=== PATIENT | female | born 1965 | race Caucasian/White ===

== ENCOUNTER 2024-05-21 16:26 | Emergency (ER) | payer OTHER, SELFPAY ==
[2024-05-21 16:42] VITALS: BP 143/100; PULSE 109; RESP 16; TEMP 36.7; O2SAT 98; BMI 36.3
[2024-05-21 16:56] LABS: UTC Strep Screen (Rapid) Positive (Negative)
--- NOTE | 2024-05-21 17:07 | ED_ITS ---
Discharge Plan Disposition Patient Disposition: Home, Self-Care Condition: Good Prescriptions Prescriptions: New penicillin V potassium 500 mg tablet 500 mg PO BID Qty: 20 0RF Referrals Follow up/Referrals: Provider,Referral, MD [Primary Care Provider] - See instructions Activity Restrictions/Add. Instructions Additional Instructions/Restrictions: *Monitor Temp, Over the counter Motrin or Tylenol as directed/as needed Tylenol every 4 hours and Motrin every 6 hours (as long as your family doctor has told you that you can take it) for fever or pain. and straight to ER if unable to lower temp less than 101.0 after medication given *Warm salt water gargles may help to soothe the throat *Throat Lozenges? *Warm fluids like tea with honey may help to soothe the throat? *Sleep elevated *Humidifier/Vaporizer *If you did not take Penicillin shot or was unable to, start taking antibiotic immediately and make sure that you take it for the FULL length of time although you should start to feel better in 24-48 hours *change toothbrush and toothpaste 24-48 hours after starting to take antibiotics so you do not reinfect yourself Monitor Temp. Tylenol and/or Ibuprofen as needed. ER if fever is no less than 101 despite alternating Tylenol and Ibuprofen * Encourage fluids, water, Gatorade, powerade, pedialyte if infant/toddler/or child *Cold fluids, popsicles and ice cream may feel good on his throat Follow up IMMEDIATELY for new or worsening symptoms or no Noticeable improvement over the next 48-72 hours. 911 for difficulty breathing or swallow ing Clinical Impressions Clinical Impression: Strep throat Instructions Patient Instructions: DI for Strep Throat, Strep Throat, Penicillin V Potassium Print Language Print Language: Sudanese Discharge ED Provider: Lelia Merritt [facility] HPI General Stated complaint: sore throat, [place] Mode of Arrival: Ambulatory Source of Information: Patient Limitations: No Limitations Time Seen by Provider: 05/21/24 17:07 Description of Symptoms (Recalled from Triage Doc. by RN): Patient reports sore throat, headache, body aches, fever and chills since yesterday. HEENT Symptoms (Recalled from RN notes): Yes Resp Symptoms (Recalled from RN notes): No Skin Symptoms (Recalled from RN notes): No MS Symptoms (Recalled from RN notes): No Functional Status (Recalled from RN notes): wnl History of Present Illness Provider Complaint: Patient states that she was around her daughter last week that had strep throat and now she started feeling bad yesterday States that she has been having sore throat, headache, body aches fever and chills so today she came in to get checked Related Data Previous Rx's ?Medication ?Instructions ?Recorded penicillin V potassium 500 mg 500 mg PO BID #20 tabs 05/21/24 tablet Allergies Allergy/AdvReac Type Severity Reaction Status Date / Time acetaminophen [From Percocet] Allergy Unknown Verified 05/21/24 16:45 allergy reaction oxycodone [From Percocet] Allergy Unknown Verified 05/21/24 16:45 allergy reaction tramadol [From Ultram] Allergy Unknown Verified 05/21/24 16:45 allergy reaction Worker's Comp Is this a Worker's Comp case?: No [facility] Disclaimer: The information contained in this section may have been updated after the patient was seen, as this information can be updated by other users. Social History Smoking Status: Unknown if ever smoked alcohol intake: never current occupational status: employed Travel in the last 8 weeks: None ROS Obtained: Yes All systems reviewed & no additional complaints except as documented and Yes Systems reviewed as appropriate & no additional complaints except as documented Constitutional Constitutional: Reports system reviewed and no additional complaints, except as documented, Reports as per HPI, Reports body ache, Reports chills, Reports fever(s) and Reports headache(s) ENT Ears, Nose, Mouth, and Throat: Reports system reviewed and no additional complaints, except as documented, Reports as per HPI, Reports headache(s) and Reports sore throat Cardiovascular Cardiovascular: Reports system reviewed and no additional complaints, except as documented and Reports as per HPI Respiratory Respiratory: Reports system reviewed and no additional complaints, except as documented and Reports as per HPI Gastrointestinal Gastrointestingal: Reports system reviewed and no additional complaints, except as documented and as per HPI Neurologic Neurologic: Reports headache(s) Physical Exam General General appearance: alert and in no apparent distress Eye Eye exam: Present normal appearance, PERRL and EOMI ENT ENT exam: Present mucous membranes moist Expanded ENT Exam Nose exam: Absent sinus tenderness Throat exam: Present tonsillar erythema and tonsillar exudate Respiratory Respiratory exam: Present normal lung sounds bilaterally; Absent respiratory distress or wheezes Cardiovascular Cardiovascular exam: Present regular rate, normal rhythm and normal heart sounds Abdominal Exam Abdominal exam: Present soft and normal bowel sounds; Absent distention or tenderness Neurological Exam Neurological exam: Present alert, oriented X3 and normal gait Medical Decision Making Medical Records Screening: Per USPSTF and CDC recommendations, given the prevalence of disease in our region, it is our hospital?s policy to screen for HIV and viral Hepatitis for all patients aged 18 and over and those with ongoing risk factors. Estiven Inquiry Pt receiving controlled substance: No Estiven was queried for this patient: No Vital Signs: 05/21/24 16:42 Temperature 98.0 F Temperature Source Oral Pulse Rate [Radial] 109 H Respiratory Rate 16 Blood Pressure [Right Arm] 143/100 H Blood Pressure Mean [Right Arm] 114 Blood Pressure Source [Right Arm] Automatic Cuff Blood Pressure Position [Right Arm] Sitting 02 Sat by Pulse Oximetry 98 Oxygen Delivery Method Room Air Lab Data Lab results reviewed: Yes I reviewed the patient's lab results. Lab Results 05/21/24 16:55: Strep Scn [facility] Positive A
[2024-05-21 17:21] VITALS: BP 143/100; PULSE 109; RESP 16; TEMP 36.7; O2SAT 98
== END 2024-05-21 17:23 | disposition home or self-care (01) ==
PROVIDERS: Emergency Provider Nurse Practitioner
DX: J02.0 Streptococcal pharyngitis (principal); R51.9 Headache, unspecified; R53.81 Other malaise
CPT/HCPCS: 87880; 99212; 99214; G0463

== ENCOUNTER 2024-07-16 11:31 | Emergency (ER) | payer OTHER, SELFPAY ==
[2024-07-16 11:50] VITALS: BP 121/83; PULSE 91; RESP 19; TEMP 36.8; O2SAT 99; BMI 35.0
--- NOTE | 2024-07-16 12:09 | EXP.UTC ---
Discharge Plan Disposition Patient Disposition: Home, Self-Care Condition: Good Prescriptions Prescriptions: New doxycycline hyclate 100 mg capsule 100 mg PO BID Qty: 20 0RF No Action cyclobenzaprine 10 mg tablet 10 mg PO DAILY Patient Comments: TAKE 1 TABLET BY MOUTH TWICE DAILY NEEDED FOR MUSCLE SPASM cetirizine [Zyrtec] 10 mg Tablet 10 mg PO DAILY omeprazole 20 mg capsule,delayed release(DR/EC) 20 mg PO BID Patient Comments: TAKE 1 CAPSULE BY MOUTH TWICE DAILY DO NOT CRUSH OR CHEW duloxetine 60 mg capsule,delayed release(DR/EC) 60 mg PO BID Patient Comments: TAKE 1 CAPSULE BY MOUTH TWICE DAILY berberine chloride 500 mg Capsule 1,500 mg PO DAILY Referrals Follow up/Referrals: Provider,Referral, MD [Primary Care Provider] - See instructions Activity Restrictions/Add. Instructions Additional Instructions/Restrictions: Watch bite area and follow up immediately if any worsening of rash Take medication as prescribed, seperate your dose of Doxycycline with your Omeprazole by at least 2 hours Over the counter Motrin and/or Tyelnol for fever or pain Follow up with your Family Doctor if no improvement Clinical Impressions Clinical Impression: Tick bite Instructions Patient Instructions: How to Remove a Tick, Protect Yourself from Tickborne Illnesses, Doxycycline Print Language Print Language: Mongolian Discharge ED Provider: Lelia Merritt [facility] General Stated complaint: tick bite on stomach Mode of Arrival: Ambulatory Source of Information: Patient Limitations: No Limitations Time Seen by Provider: 07/16/24 12:09 Description of Symptoms (Recalled from Triage Doc. by RN): PATIENT C/O TICK BITE TO RIGHT SIDE OF ABDOMEN THAT SHE NOTICED THIS MORNING HEENT Symptoms (Recalled from RN notes): No Resp Symptoms (Recalled from RN notes): No Skin Symptoms (Recalled from RN notes): Yes MS Symptoms (Recalled from RN notes): No Functional Status (Recalled from RN notes): WNL History of Present Illness Provider Complaint: Patient states that she has a tick bite on the right side of her abdomen that she noticed this morning and she removed the tick and noticed the area was red and seemed to be starting to have a rash around it Unsure how long it may have been there Related Data Home Medications ?Medication ?Instructions ?Recorded ?Confirmed berberine chloride 500 mg capsule 1,500 mg PO DAILY 07/16/24 07/16/24 cetirizine 10 mg tablet (Zyrtec) 10 mg PO DAILY 07/16/24 07/16/24 cyclobenzaprine 10 mg tablet 10 mg PO DAILY 07/16/24 07/16/24 duloxetine 60 mg capsule,delayed 60 mg PO BID 07/16/24 07/16/24 release omeprazole 20 mg capsule,delayed 20 mg PO BID 07/16/24 07/16/24 release Previous Rx's ?Medication ?Instructions ?Recorded doxycycline hyclate 100 mg capsule 100 mg PO BID #20 caps 07/16/24 Allergies Allergy/AdvReac Type Severity Reaction Status Date / Time acetaminophen (From Percocet) Allergy Unknown Verified 05/21/24 16:45 allergy reaction gabapentin Allergy Unknown Verified 07/16/24 12:05 allergy reaction oxycodone (From Percocet) Allergy Unknown Verified 05/21/24 16:45 allergy reaction tramadol (From Ultram) Allergy Unknown Verified 05/21/24 16:45 allergy reaction Worker's Comp Is this a Worker's Comp case?: No [facility] Disclaimer: The information contained in this section may have been updated after the patient was seen, as this information can be updated by other users. Medical History (Updated 07/16/24 @ 12:20 by Lelia Merritt APRN) Migraines GERD (gastroesophageal reflux disease) Depression Anxiety Surgical History (Updated 07/16/24 @ 12:06 by Lexy Fofana RN) History of cholecystectomy History of tubal ligation History of hysterectomy Social History (Updated 05/21/24 @ 17:11 by Lelia Merritt APRN) Smoking Status: Unknown if ever smoked alcohol intake: never current occupational status: employed Travel in the last 8 weeks: None ROS Obtained: Yes All systems reviewed & no additional complaints except as documented and Yes Systems reviewed as appropriate & no additional complaints except as documented Constitutional Constitutional: Reports system reviewed and no additional complaints, except as documented and Reports as per HPI ENT Ears, Nose, Mouth, and Throat: Reports system reviewed and no additional complaints, except as documented and Reports as per HPI Cardiovascular Cardiovascular: Reports system reviewed and no additional complaints, except as documented and Reports as per HPI Respiratory Respiratory: Reports system reviewed and no additional complaints, except as documented and Reports as per HPI Gastrointestinal Gastrointestingal: Reports system reviewed and no additional complaints, except as documented and as per HPI Integumentary/Breasts Skin/Breast: Reports system reviewed and no additional complaints, except as documented, Reports as per HPI and Reports rash (tick bite with rash ) Physical Exam General General appearance: alert and in no apparent distress ENT ENT exam: Present mucous membranes moist Chest Chest inspection: Present normal inspection and symmetric chest wall rise Respiratory Respiratory exam: Present normal lung sounds bilaterally; Absent respiratory distress or wheezes Cardiovascular Cardiovascular exam: Present regular rate, normal rhythm and normal heart sounds Neurological Exam Neurological exam: Present alert, oriented X3 and normal gait Skin Skin exam: Present rash Expanded Skin Exam Body image: 1. tick bite with red rash noted around bite area, appears like tick was removed completely Medical Decision Making Medical Records Screening: Per USPSTF and CDC recommendations, given the prevalence of disease in our region, it is our hospital?s policy to screen for HIV and viral Hepatitis for all patients aged 18 and over and those with ongoing risk factors. Estiven Inquiry Pt receiving controlled substance: No Estiven was queried for this patient: No Vital Signs: 07/16/24 11:50 Temperature 98.3 F Temperature Source Oral Pulse Rate [Left Brachial] 91 H Respiratory Rate 19 Blood Pressure [Left Arm] 121/83 Blood Pressure Mean [Left Arm] 95 Blood Pressure Source [Left Arm] Automatic Cuff Blood Pressure Position [Left Arm] Supine 02 Sat by Pulse Oximetry 99 Oxygen Delivery Method Room Air
[2024-07-16 12:21] VITALS: BP 121/83; PULSE 91; RESP 19; TEMP 36.8; O2SAT 99
== END 2024-07-16 12:23 | disposition home or self-care (01) ==
PROVIDERS: Emergency Provider Nurse Practitioner
DX: S30.861A Insect bite (nonvenomous) of abdominal wall, initial encounter (principal); R21 Rash and other nonspecific skin eruption
CPT/HCPCS: 99212; G0381

== ENCOUNTER 2025-05-15 15:13 | Outpatient (CLI) | payer OTHER, SELFPAY ==
--- OUTSIDE RECORDS SUMMARY | 2025-05-02 12:40 | XMS_ITS | Encounter Summary ---
Author Organization [facility] Address [address] [place] [address] Care Team Providers Care Pole Truck Driver Name Role Phone Yeni Mustafa HARDWOOD FINISHER Primary Care Provider [phone] Reason for Visit * Reason Comments Labs Hair/Scalp Problem Encounter Details Date Type Department Care Team (Late st Contact Info) Description 05/02/2025 12:40 PM EDT Office Visit [facility] [address] [place] [address] Yeni Mustafa APRN [address] [place] [address] Hair thinning (Primary Dx); Chronic fatigue syndrome with fibromyalgia; Encounter for screening mammogram for malignant neoplasm of breast Social History Tobacco Use Types Packs/Day Years Used Date Smoking Tobacco: Never Passive Smoke Exposure: Never Smokeless Tobacco: Never Alcohol Use Standard Drinks/Week Comments Not Currently 0 (1 standard drink = 0.6 oz pur e alcohol) Maybe 1 a year PHQ-2 Answer Date Recorded Patient Health Questionnaire-2 Score 2 05/02/2025 PHQ-9 Answer Date Recorded Patient Health Questionnaire-9 Score 2 05/02/2025 Humiliation, Afraid, Rape, and Kick questionnair e Answer Date Recorded Within the last year, have y ou been afraid of your partner or ex-partner? No 05/02/2025 Within the last year, have y ou been humiliated or emotionally abused in other ways by your partner or ex-partner? No Within the last year, have y ou been kicked, hit, slapped, or otherwise physically hurt by your partner or ex-partner? No 05/02/2025 Within the last year, have y ou been raped or forced to have any kind of sexual activity by your partner or ex-partner? No 05/02/2025 Hunger Vital Sign Answer Date Recorded Within the past 12 months, y ou worried that your food would run out before you got the money to buy more. Never true 05/02/20 25 Within the past 12 months, t he food you bought just didn't last and you didn't have money to get more. Never true 05/02/2025 PRAPARE - Transportation Answer Date Re corded In the past 12 months, has l ack of transportation kept you from medical appointments or from getting medications? No 12/2024 In the past 12 months, has l ack of transportation kept you from meetings, work, or from getting things needed for daily living? No 05/02/2025 Housing Stability Vital Sign Answer Quinn e Recorded In the last 12 months, was t here a time when you were not able to pay the mortgage or rent on time? No 05/02/2025 In the past 12 months, how m any times have you moved where you were living? 0 05/02/2025 At any time in the past 12 m [facility], were you homeless or living in a half-way (including now)? No 05/02/2025 [facility] Utilities Answer Date Recorded In the past 12 months has th e electric, gas, oil, or water company threatened to shut off services in your home? No 05/02/2025 Comments Unknown Sex and Gender Information Value Date Recorded Sex Assigned at Not on file Legal Sex Female 11:41 AM EDT Gender Identity Not on file Sexual Orientation Not on file documented as of this encounter Last Filed Vital Signs Vital Sign Reading Time Taken Comments Blood Pressure 120/82 05/02/2025 12:33 PM EDT Pulse 94 05/02/2025 12:33 PM EDT Temperature 37 C (98.6 F) 05/02/2025 12:33 PM EDT Respiratory Rate 14 05/02/2025 12:3 3 PM EDT Oxygen Saturation 99% 05/02/2025 12: 33 PM EDT Inhaled Oxygen Concentration - - Weight 95.7 kg (210 lb 15.7 oz) 025 12:33 PM EDT Height 167.6 cm (5' 6 ) 05/02/2025 12:3 3 PM EDT Body Mass Index 34.05 05/02/2025 12:33 PM EDT documented in this encounter Functional Status * Over the past 2 weeks, how often have you been bothered by any of the following problems? Question Answer Date of Assessment Author Little interest or pleasure in doing things Several days 05/02/2025 12:36 PM EDT Caity Mustafa Feeling down, depressed, or hopeless Several days 05/02/2025 12:36 PM EDT Caity Mustafa Patient Health Questionnaire -2 Score 2 05/02/2025 12:36 PM EDT Caity Mustafa * Question Answer Date of Assessment Author Trouble falling or staying a sleep, or sleeping too much Not at all 05/02/2025 12:36 PM EDT Caity Mustafa Feeling tired or having mckinley le energy Not at all 05/02/2025 12:36 PM EDT Caity Mustafa Poor appetite or overeating Not at all 05/02/2025 12 :36 PM EDT Caity Mustafa Feeling bad about yourself - or that you are a failure or have let yourself or your family down Not at all 05/02/2025 12:36 PM EDT Janet Mustafa Trouble concentrating on thi ngs, such as reading the newspaper or watching television Not at all 05/02/2025 12:36 PM EDCaity Crockett Moving or speaking so slowly that other people could have noticed? Or the opposite - being so fidgety or restless that you have been moving around a lot more than usual. Not at all 05/02/2025 12:36 PM EDT Caity Mustafa Thoughts that you would be b mary off or hurting yourself in some way Not at all 05/02/2025 12:36 PM EDT Caity Mustafa Patient Health Questionnaire-9 Score 2 12/2024 12:36 PM EDT Caity Mustafa * Calculated C-SSRS Risk Score (Lifetime/Recent) Answer Date of Assessment Author No Risk Indicated 05/02/2025 12:35 PM EDT Caity Mustafa * How difficult have these problems made it for you to do your work, take care of things at home, or get along with other people? Answer Date of Assessment Author Not difficult at all 05/02/2025 12:36 PM EDT Caity Iglesias * How difficult have these problems made it for you to do your work, take care of things at home, or get along with other people? Answer Date of Assessment Author Not difficult at all 05/02/2025 12:36 PM EDT Caity Iglesias * Question Answer Date of Assessment Author 1. Wish to be (Past 1 Month) No 025 12:35 PM EDT Caity Mustafa 2. Non-Specific Active Suici siobhan Thoughts (Past 1 Month) No 05/02/2025 12:35 PM EDT Caity Mustafa 6. Suicidal Behavior (Lifetime) No 12:35 PM EDT Caity Mustafa documented as of this encounter Miscellaneous Notes * Progress Notes - Yeni Mustafa, HARDWOOD FINISHER - 05/02/2025 12:40 PM EDT Subjective Patient ID: Carolann Mcintyre is a 59 y.o. female. Chief Complaint Patient presents with Labs Hair/Scalp Problem Here with report of recent divorce but feeling better now. Enjoying life now and looking to enjoy another grandkid. Still taking sertraline. Was shocked at first but doing well now. Has noticed some hair thinning and worried about labs. Feels it is all over and not in patches. Sees more hair in the drain at home than usual. Was on semaglutide but was very sick for 5 days and stopped it. The following portions of the chart were reviewed this encounter and updated as appropriate: Tobacco Allergies Meds Problems Med Hx Surg Hx Fam Hx Current Medications[1] Objective Blood pressure 120/82, pulse 94, temperature 37 ??C (98.6 ??F), resp. rate 14, height 1.676 m (5' 6 ), weight 95.7 kg (210 lb 15.7 oz), SpO2 99%. Body mass index is 34.05 kg/m??. Physical Exam Vitals reviewed. Constitutional: Appearance: Normal appearance. Cardiovascular: Rate and Rhythm: Normal rate and regular rhythm. Pulmonary: Effort: Pulmonary effort is normal. Breath sounds: Normal breath sounds. Skin: General: Skin is warm and dry. Comments: No patches of alopecia . No scalp redness Neurological: Mental Status: She is alert and oriented to person, place, and time. Psychiatric: Mood and Affect: Mood normal. Behavior: Behavior normal. Thought Content: Thought content normal. Judgment: Judgment normal. Assessment/Plan Diagnoses and all orders for this visit: Hair thinning - Comprehensive Metabolic Panel, Plasma - CBC and Differential - Hemoglobin A1c - Vitamin D 25 Hydroxy - Vitamin B12, Serum - Thyroid Stimulating Hormone, Plasma Chronic fatigue syndrome with fibromyalgia - Comprehensive Metabolic Panel, Plasma - CBC and Differential - Hemoglobin A1c - Vitamin D 25 Hydroxy - Vitamin B12, Serum - Thyroid Stimulating Hormone, Plasma Encounter for screening mammogram for malignant neoplasm of breast - Mammography Breast Screening Tomosynthesis Bilateral; Future Discussed poss causes of hair thinning Will get labs for evaluation Note to patient: The Century Cures Act makes medical notes like these available to patients inthe interest of transparency. However, be advised this is a medical document. It is intended as peer to peer communication. It is written in medical language and may contain abbreviations or verbiagethat are unfamiliar. It may appear blunt or direct. Medical documents are intended to carry relevant information, facts as evident, and the clinical opinion of the practitioner. [1] Current Outpatient Medications: cholecalciferol (Vitamin D-3) 50 MCG (2000 UT) capsule, Take 1 capsule (2,000 Units) by mouth daily., Disp: , Rfl: cyclobenzaprine (Flexeril) 10 MG tablet, Take 1 tablet by mouth 2 (two) times a day as needed for muscle spasms., Disp: 60 tablet, Rfl: 11 omeprazole (PriLOSEC) [address] capsule, Take 1 capsule by mouth in the morning and 1 capsule beforebedtime. Do not crush or chew., Disp: 180 capsule, Rfl: 3 sertraline (Zoloft) 25 MG tablet, Take 1 tablet by mouth daily., Disp: 90 tablet, Rfl: 3 documented in this encounter Plan of Treatment Scheduled Orders Name Type Priority Associated Diagnoses Orde r Schedule Mammography Breast Screening Tomosynthesis Bilateral Imaging Routine Encounter for screening mammogram for malignant neoplasm of breast Expected: 05/02/2025 (Approximate), Expires: 11/03/2026 documented as of this encounter Procedures Procedure Name Priority Date/Time Associated Diagnosis Comments VITAMIN D 25 HYDROXY Routine 05/02/2025 1:13 PM EDT Hair thinning Chronic fatigue syndrome with fibromyalgia CBC WITH AUTO DIFFERENTIAL Routine 05/02/2025 1:13 PM EDT Hair thinning Chronic fatigue syndrome with fibromyalgia TSH Routine 05/02/2025 1:13 PM EDT Hair thinning Chronic fatigue syndrome with fibromyalgia HEMOGLOBIN A1C Routine 05/02/2025 1:13 PM EDT Hair thinning Chronic fatigue syndrome with fibromyalgia VITAMIN B12, SERUM Routine 05/02/2025 1: 13 PM EDT Hair thinning Chronic fatigue syndrome with fibromyalgia COMPREHENSIVE METABOLIC PANEL, PLASMA Routine 05/02/2025 1:13 PM EDT Hair thinning Chronic fatigue syndrome with fibromyalgia documented in this encounter Results * Thyroid Stimulating Hormone, Plasma (05/02/2025 1:13 PM EDT) Thyroid Stimulating Hormone, Plasma 2.31 0.40 - 4.20 uIU/mL 05/02/2025 7:28 PM EDT [facility] Blood Venous blood specimen / Unknown Venipuncture / Unknown 05/02/2025 1:13 PM EDT 05/02/2025 1:13 PM EDT us Yeni Mustafa HARDWOOD FINISHER LAB BLOOD ORDERABLES Final Re sult [facility] [address] [place] [address] * Vitamin B12, Serum (05/02/2025 1:13 PM EDT) Vitamin B12, Serum 486 210 - 1,033 pg/mL 05/02/2025 7:54 PM EDT [facility] Blood Venous blood specimen / Unknown Venipuncture / Unknown 05/02/2025 1:13 PM EDT 05/02/2025 1:13 PM EDT us Yeni Eatonum HARDWOOD FINISHER LAB BLOOD ORDERABLES Final Re sult Performing Organization Address [facility] Co de Phone Number [facility] [address] [place] [address] * (ABNORMAL) Vitamin D 25 Hydroxy (05/02/2025 1:13 PM EDT) Vitamin D 25 Hydroxy 126.4(H) 20.0 - 80.0 ng/mL 05/02/2025 9:45 PM EDT [facility] Blood Venous blood specimen / Unknown Venipuncture / Unknown 05/02/2025 1:13 PM EDT 05/02/2025 1:13 PM EDT Narrative [facility] - 05/02/2025 9:45 PM EDT Testing performed on [employer], standardized against NIST SRM 2972. When testing samples from patients whose predominant form of vitamin D is vitamin D2, such as patients receiving vitamin D2 supplementation, results that are subtherapeutic should be confirmed with another method, such as LC-MS/MS, before being used for patient management. Vitamin D, 25-Hydroxy reference range, age 18 years and up: Deficiency: <12 ng/mL Insufficiency: 12 to 19 ng/mL Sufficiency: 20 to 80 ng/mL Possible toxicity: >100 ng/mL us Pradhane Stefanie [place] HARDWOOD FINISHER LAB BLOOD ORDERABLES Final Re sult Performing Organization Address [facility]/ZIP Co de Phone Number [facility] [address] [place] [address] * Hemoglobin A1c (05/02/2025 1:13 PM EDT) Hemoglobin A1c 5.5 <5.7 % 05/05/2025 10:33 AM EDT [facility] Comment:A hemoglobin variant was detected in the HbA1c capillary electrophoresis testing. If clinically indicated, hemoglobin electrophoresis should be ordered to further evaluate this finding. This variant may impact the red blood cell turnover rate. The clinical utility of HbA1c measurement for monitoring long-term glucose control in the setting of hemoglobin variants has not been well characterized. Blood Venous blood specimen / Unknown Venipuncture / Unknown 05/02/2025 1:13 PM EDT 05/02/2025 1:13 PM EDT Narrative [facility] - 05/05/2025 10:33 AM EDT HA1C Interpretive Data: Diagnosis of Diabetes: Diabetic > or = 6.5% Pre-diabetic 5.7 to 6.4% Non-diabetic < or = 5.6% Glycemic Targets for Type I and Type II Diabetics: Non- Adults <7.0% Adults <6.0% Children and Adolescents <7.5% Source: [place] [employer]. Standards of medical care in diabetes,2017. Diabetes Care.2017:40 (suppl 1):S1-S135. us Yeni Mustafa APRN LAB BLOOD ORDERABLES Final Re sult [facility] [address] [place] [address] * CBC and Differential (05/02/2025 1:13 PM EDT) WBC Count 7.56 3.70 - 10.30 10*3/uL LAB HEMATOLOGY METHOD 05/02/2025 7:12 PM EDT [facility] RBC Count 4.33 3.90 - 5.20 10*6/uL LAB HEMATOLOGY METHOD 05/02/2025 7:12 PM EDT [facility] HGB 11.5 11.2 - 15.7 g/dL LAB HEMATOLOGY METHOD 05/02/2025 7:12 PM EDT [facility] HCT 35.8 34.0 - 45.0 % LAB HEMATOLOGY METHOD 05/02/2025 7:12 PM EDT [facility] Platelet Count 346 155 - 369 10*3/uL LAB HEMATOLOGY METHOD 05/02/2025 7:12 PM EDT [facility] MCV 83 79 - 98 fL LAB HEMATOLOGY METHOD 05/02/2025 7:12 PM EDT [facility] MCH 26.6 26.0 - 32.0 pg LAB HEMATOLOGY METHOD 05/02/2025 7:12 PM EDT [facility] MCHC 32.1 30.7 - 35.5 g/dL LAB HEMATOLOGY METHOD 05/02/2025 7:12 PM EDT [facility] RDW 14.5 11.5 - 14.5 % LAB HEMATOLOGY METHOD 05/02/2025 7:12 PM EDT [facility] MPV 10.3 8.8 - 12.5 fL LAB HEMATOLOGY METHOD 05/02/2025 7:12 PM EDT [facility] nRBC 0.0 <=0.0 per 100 WBCs LAB HEMATOLOGY METHOD 05/02/2025 7:12 PM EDT [facility] Differential Type Automated LAB HEMATOLOGY METHOD 05/02/2025 7:12 PM EDT [facility] Neutrophils % 48 % LAB HEMATOLOGY METHOD 05/02/2025 7:12 PM EDT [facility] Lymphocytes % 41 % LAB HEMATOLOGY METHOD 05/02/2025 7:12 PM EDT [facility] Monocytes % 8 % LAB HEMATOLOGY METHOD 05/02/2025 7:12 PM EDT [facility] Eosinophils % 2 % LAB HEMATOLOGY METHOD 05/02/2025 7:12 PM EDT [facility] Basophils % 1 % LAB HEMATOLOGY METHOD 05/02/2025 7:12 PM EDT [facility] Immature Granulocytes % 0 % LAB HEMATOLOGY METHOD 05/02/2025 7:12 PM EDT [facility] Neutrophils Absolute 3.70 1.60 - 6.10 10*3/uL LAB HEMATOLOGY METHOD 05/02/2025 7:12 PM EDT [facility] Lymphocytes Absolute 3.07 1.20 - 3.90 10*3/uL LAB HEMATOLOGY METHOD 05/02/2025 7:12 PM EDT [facility] Monocytes Absolute 0.58 0.30 - 0.90 10*3/uL LAB HEMATOLOGY METHOD 05/02/2025 7:12 PM EDT [facility] Eosinophils Absolute 0.12 0.00 - 0.50 10*3/uL LAB HEMATOLOGY METHOD 05/02/2025 7:12 PM EDT [facility] Basophils Absolute 0.06 0.00 - 0.10 10*3/uL LAB HEMATOLOGY METHOD 05/02/2025 7:12 PM EDT [facility] Immature Granulocytes Absolute 0.03 0.00 - 0.06 10*3/uL LAB HEMATOLOGY METHOD 05/02/2025 7:12 PM EDT [facility] Blood Venous blood specimen / Unknown Venipuncture / Unknown 05/02/2025 1:13 PM EDT 05/02/2025 1:13 PM EDT Narrative [facility] - 05/02/2025 7:12 PM EDT Therapeutic decision making should be based on absolute values, rather than percentages. us Yeni M Moon HARDWOOD FINISHER LAB BLOOD ORDERABLES Final Re sult [facility] [address] [place] [address] * Comprehensive Metabolic Panel, Plasma (05/02/2025 1:13 PM EDT) Glucose, Plasma 89 74 - 99 mg/dL 05/02/2025 7:28 PM EDT [facility] BUN, Plasma 17 7 - 21 mg/dL 05/02/2025 7:28 PM EDT [facility] Creatinine, Plasma 0.66 0.60 - 1.10 mg/dL 05/02/2025 7:28 PM EDT [facility] BUN/Creatinine Ratio 26 05/02/2025 7:28 PM EDT [facility] Sodium, Plasma 141 136 - 145 mmol/L 05/02/2025 7:28 PM EDT [facility] Potassium, Plasma 4.1 3.6 - 4.9 mmol/L 05/02/2025 7:28 PM EDT [facility] Chloride, Plasma 104 97 - 107 mmol/L 05/02/2025 7:28 PM EDT [facility] CO2, Plasma 24 22 - 29 mmol/L 05/02/2025 7:28 PM EDT [facility] Anion Gap 13 6 - 16 mmol/L 05/02/2025 7:28 PM EDT [facility] Total Calcium, Plasma 9.8 8.9 - 10.2 mg/dL 05/02/2025 7:28 PM EDT [facility] Total Protein 7.2 6.3 - 7.9 g/dL 05/02/2025 7:28 PM EDT [facility] Albumin, Plasma 4.4 3.5 - 5.2 g/dL 05/02/2025 7:28 PM EDT [facility] AST, Plasma 19 10 - 35 U/L 05/02/2025 7:28 PM EDT [facility] ALT, Plasma 21 10 - 35 U/L 05/02/2025 7:28 PM EDT [facility] Alkaline Phosphatase, Plasma 74 46 - 142 U/L 05/02/2025 7:28 PM EDT [facility] Total Bilirubin, Plasma 0.3 0.2 - 1.1 mg/dL 05/02/2025 7:28 PM EDT [facility] eGFRcr 101.8 mL/min/1.7 3m*2 05/02/2025 7:28 PM EDT [facility] Comment:Reported eGFRcr in m L/min/1.73m2 is based the CKD-EPI 2020 equation that does not use a race coefficient. Blood Venous blood specimen / Unknown Venipuncture / Unknown 05/02/2025 1:13 PM EDT 05/02/2025 1:13 PM EDT us Yein Mustafa APRN LAB BLOOD ORDERABLES Final Re sult Performing Organization Address City/State/[facility] Co de Phone Number [facility] [address] [place] [address] documented in this encounter Visit Diagnoses Diagnosis Hair thinning- Primary Unspecified alopecia Chronic fatigue syndrome with fibromyalgia Encounter for screening mammogram for malignant neoplasm of breast documented in this encounter Additional Health Concerns Assessment Noted Time PHQ-9 Depression Total Score: 2 05/02/20 25 12:36 PM EDT A Body Mass Index follow-up plan has been documented for the patient 05/02/2025 2:04 PM EDT documented as of this encounter Care Teams Pole Truck Driver Relationship Specialty Start Date End Date Yeni Mustafa APRN [address] [place] [address] PCP - General Family Medicine 03/12/24 documented as of this encounter
--- OUTSIDE RECORDS SUMMARY | 2025-05-15 15:16 | XMS_ITS | Clinical Summary ---
[facility] Organization [facility] Address [address] [place] [id number] Care Team Providers Care Detention Sergeant Name Role Phone Yeni Mustafa HOOP MAKER MACHINE Primary Care Provider [phone] Social History Tobacco Use Types Packs/Day Years Used Date Smoking Tobacco: Never Assessed Comments Unknown Sex and Gender Information Value Date Recorded Sex Assigned at Not on file Legal Sex Female 3:59 PM EST Gender Identity Not on file Sexual Orientation Not on file Plan of Treatment Health Maintenance Due Date Last Done Comments ANNUAL PHYSICAL 1966 Annual Gynecologic Pelvic and Breast Exam 1966 HEPATITIS C SCREENING 1966 MAMMOGRAM 2006 COLOGUARD 2011 COLON CANCER SCREENING 5 YEAR SIGMOIDOSCOPY 2011 COLONOSCOPY 2011 12/26/[address] CANCER SCREENING 2011 CT COLONOGRAPHY 2011 FECAL OCCULT BLOOD TEST 2011 FIT Testing (1 year) 2011 Pneumococcal Vaccine 50+ (1 of 1 - PCV) 2016 ZOSTER VACCINE (1 of 2) 2016 COVID-19 Vaccine (2 - season) 04/28/202504/2021 INFLUENZA VACCINE 05/28/2025 TDAP/TD VACCINES (2 - Td or Tdap) 10/15/2034 025 Insurance [facility] P[facility] Care Teams Detention Sergeant Relationship Specialty Start Date End Date Yeni Mustafa [place] [address] PCP - General Family Medicine 10/15/24
--- OUTSIDE RECORDS SUMMARY | 2025-05-15 15:16 | XMS_ITS | Encounter Summary ---
Author Organization [facility] Address [address] [place] [address] Care Team Providers Care Director Of Dietary Name Role Phone Yeni Mustafa APRN Primary Care Provider Encounter Details Date Type Department Care Team (Latest Contact Info) Description 04/30/2025 Travel Social History Tobacco Use Types Packs/Day Years Used Date Smoking Tobacco: Never Smokeless Tobacco: Never Alcohol Use Standard Drinks/Week Comments Not Currently 0 (1 standard drink = 0.6 oz pur e alcohol) Maybe 1 a year Humiliation, Afraid, Rape, and Kick questionnair e Answer Date Recorded Within the last year, have y ou been afraid of your partner or ex-partner? No 11/19/2024 Within the last year, have y ou been humiliated or emotionally abused in other ways by your partner or ex-partner? No Within the last year, have y ou been kicked, hit, slapped, or otherwise physically hurt by your partner or ex-partner? No 11/19/2024 Within the last year, have y ou been raped or forced to have any kind of sexual activity by your partner or ex-partner? No 11/19/2024 PHQ-2 Answer Date Recorded Patient Health Questionnaire-2 Score 6 10/15/2024 Hunger Vital Sign Answer Date Recorded Within the past 12 months, y ou worried that your food would run out before you got the money to buy more. Never true 11/20/19 Within the past 12 months, t he food you bought just didn't last and you didn't have money to get more. Never true 11/19/2024 PRAPARE - Transportation Answer Date Re corded In the past 12 months, has l ack of transportation kept you from medical appointments or from getting medications? No 10/27 In the past 12 months, has l ack of transportation kept you from meetings, work, or from getting things needed for daily living? No 11/19/2024 Housing Stability Vital Sign Answer Quinn e Recorded In the last 12 months, was t here a time when you were not able to pay the mortgage or rent on time? No 03/08/2024 In the last 12 months, how many places have you lived? 1 03/08/2024 In the last 12 months, was t here a time when you did not have a steady place to sleep or slept in a senior care (including now)? No 03/08/2024 PHQ-9 Answer Date Recorded Patient Health Questionnaire-9 Score 14 10/15/2024 Housing Stability Vital Sign Answer Quinn e Recorded In the last 12 months, was t here a time when you were not able to pay the mortgage or rent on time? No 11/19/2024 In the past 12 months, how m any times have you moved where you were living? 0 11/19/2024 At any time in the past 12 m [facility], were you homeless or living in a senior care (including now)? No 11/19/2024 Utilities Answer Date Recorded In the past 12 months has th e electric, gas, oil, or water company threatened to shut off services in your home? No 11/19/2024 Comments Unknown Sex and Gender Information Value Date Recorded Sex Assigned at Not on file Legal Sex Female 11:41 AM EDT Gender Identity Not on file Sexual Orientation Not on file documented as of this encounter Plan of Treatment Not on file documented as of this encounter Visit Diagnoses Not on filedocumented in this encounter Additional Health Concerns Assessment Noted Time PHQ-9 Depression Total Score: 14 025 9:24 AM EST A Body Mass Index follow-up plan has been documented for the patient 11/19/2024 1:56 PM EDT documented as of this encounter Care Teams Director Of Dietary Relationship Specialty Start Date End Date Yeni Mustafa APRN [facility] [place] [phone] PCP - General Family Medicine 03/12/24 documented as of this encounter
--- OUTSIDE RECORDS SUMMARY | 2025-05-15 15:16 | XMS_ITS | Encounter Summary ---
Author Organization [facility] Address [address] [place] [address] Care Team Providers Care Bee Raiser Name Role Phone Yeni Mustafa APRN Primary Care Provider [phone] Reason for Visit * Reason Onset Date Comments Med Refill 10/15/2024 Encounter Details Date Type Department Care Team (Late st Contact Info) Description 10/15/2024 Refill [facility] [address] [place] [address] Yeni Mustafa APRN [address] [place] [address] Restless leg; Gastroesophageal reflux disease with esophagitis without hemorrhage Social History Tobacco Use Types Packs/Day Years Used Date Smoking Tobacco: Never Smokeless Tobacco: Never Alcohol Use Standard Drinks/Week Comments Not Currently 0 (1 standard drink = 0.6 oz pur e alcohol) Maybe 1 a year Humiliation, Afraid, Rape, and Kick questionnair e Answer Date Recorded Within the last year, have y ou been afraid of your partner or ex-partner? No 03/08/2024 Within the last year, have y ou been humiliated or emotionally abused in other ways by your partner or ex-partner? No Within the last year, have y ou been kicked, hit, slapped, or otherwise physically hurt by your partner or ex-partner? No 03/08/2024 Within the last year, have y ou been raped or forced to have any kind of sexual activity by your partner or ex-partner? No 03/08/2024 PHQ-2 Answer Date Recorded Patient Health Questionnaire-2 Score 6 10/15/2024 Hunger Vital Sign Answer Date Recorded Within the past 12 months, y ou worried that your food would run out before you got the money to buy more. Never true 03/08/20 24 Within the past 12 months, t he food you bought just didn't last and you didn't have money to get more. Never true 03/08/2024 PRAPARE - Transportation Answer Date Re corded In the past 12 months, has l ack of transportation kept you from medical appointments or from getting medications? No 02/25 In the past 12 months, has l ack of transportation kept you from meetings, work, or from getting things needed for daily living? No 03/08/2024 Housing Stability Vital Sign Answer Quinn e [...] to sleep or slept in a senior living (including now)? No 03/08/2024 PHQ-9 Answer Date Recorded Patient Health Questionnaire-9 Score 14 10/15/2024 Utilities Answer Date Recorded In the past 12 months has th e electric, gas, oil, or water company threatened to shut off services in your home? No 03/08/2024 Comments Unknown Sex and Gender Information Value Date Recorded Sex Assigned at Not on file Legal Sex Female 11:41 AM EDT Gender Identity Not on file Sexual Orientation Not on file documented as of this encounter Functional Status * Over the past 2 weeks, how often have you been bothered by any of the following problems? Question Answer Date of Assessment Author Little interest or pleasure in doing things Nearly every day 10/15/2024 9:24 AM Jane Murphy Feeling down, depressed, or hopeless Nearly every day 10/15/2024 9:24 AM Jane Murphy Patient Health Questionnaire-2 Score 6 10/15/2024 9:24 AM Jane Murphy * Question Answer Date of Assessment Author Trouble falling or staying asleep, or sleeping too much Several days 10/15/2024 9:24 AM Aric Murphy Feeling tired or having little energy Nearly every day 10/15/2024 9:24 AM Jane Murphy Poor appetite or overeating Not at all 10/15/2024 9: 24 AM Jane Murphy Feeling bad about yourself - or that you are a failure or have let yourself or your family down Not at all 10/15/2024 9:24 AM Jane Murphy Trouble concentrating on things, such as reading the newspaper or watching television Nearly every day 10/15/2024 9:24 AM Jane Murphy Moving or speaking so slowly that other people could have noticed? Or the opposite - being so fidgety or restless that you have been moving around a lot more than usual. Several days 10/15/2024 9:24 AM Jane Murphy Thoughts that you would be better off or hurting yourself in some way Not at all 10/15/2024 9:24 AM Jane Murphy Patient Health Questionnaire-9 Score 14 10/15/2024 9:24 AM Jane Murphy * How difficult have these problems made it for you to do your work, take care of things at home, or get along with other people? Answer Date of Assessment Author Somewhat difficult 10/15/2024 9:24 AM Jane Murphy documented as of this encounter Miscellaneous Notes * Telephone Encounter - Rhea Ruiz RN - 10/18/2024 9:49 AM EST Called and phone was answered then hung up * Telephone Encounter - Joselyn Mcwilliams, PharmD - 10/18/2024 9:18 AM EST 2 medication(s) has been approved per protocol. Please keep upcoming appointment for additional refills. Medications have been pended for refill atupcoming appointment. documented in this encounter Plan of Treatment Not on file documented as of this encounter Visit Diagnoses Diagnosis Restless leg Restless legs syndrome (RLS) Gastroesophageal reflux disease with esophagitis without hemorrhage documented in this encounter Additional Health Concerns Assessment Noted Time PHQ-9 Depression Total Score: 14 025 9:24 AM EST A Body Mass Index follow-up plan has been documented for the patient 10/15/2024 10:18 AM EST documented as of this encounter Care Teams Bee Raiser Relationship Specialty Start Date End Date Yeni Mustafa, CUSTOMER ENERGY SPECIALIST [address] [place] [address] PCP - General Family Medicine 03/12/24 documented as of this encounter
--- OUTSIDE RECORDS SUMMARY | 2025-05-15 15:16 | XMS_ITS | Encounter Summary ---
Author Organization [facility] Address [address] [place] [address] Care Team Providers Care Quantitative Associate Name Role Phone Yeni Mustafa APRN Primary Care Provider [phone] Encounter Details Date Type Department Care Team (Latest Contact Info) Description 05/02/2025 Travel Social History Tobacco Use Types Packs/Day [...] any time in the past 12 m [facility], were you homeless or living in a longterm (including now)? No 05/02/2025 [facility] Utilities Answer Date Recorded In the past [...] doing things Several days 05/02/2025 12:36 PM EDCaity Crockett Feeling down, depressed, or hopeless Several days 05/02/2025 12:36 PM EDT Caity Mustafa Patient Health Questionnaire -2 Score 2 05/02/2025 12:36 PM EDT Caity Mustafa * Question Answer Date of Assessment Author Trouble falling or staying a sleep, or sleeping too much Not at all 05/02/2025 12:36 PM Caity Sexton Feeling tired or having mckinley le energy Not at all 05/02/2025 12:36 PM EDT Caity Mustafa Poor appetite or overeating Not at all 05/02/2025 12 :36 PM EDT Caity Mustafa Feeling bad about yourself - or that you are a failure or have let yourself or your family down Not at all 05/02/2025 12:36 PM EDJanet Crockett Trouble concentrating on thi ngs, such as reading the newspaper or watching television Not at all 05/02/2025 12:36 PM Caity Sexton Moving or speaking so slowly that other [...] Score 2 12/2024 12:36 PM EDT Caity uMstafa * Calculated C-SSRS Risk Score (Lifetime/Recent) Answer Date of Assessment Author No Risk Indicated 05/02/2025 12:35 PM EDCaity Crockett * How difficult have these problems made [...] Not difficult at all 05/02/2025 12:36 PM MERYLT Caity Iglesias * Question Answer Date of Assessment Author 1. Wish to be (Past 1 Month) No 025 12:35 PM EDCaity Crockett 2. Non-Specific Active Suici siobhan Thoughts (Past 1 Month) No 05/02/2025 12:35 PM EDCaity Crockett 6. Suicidal Behavior (Lifetime) No 12:35 PM EDCaity Crockett documented as of this encounter Plan of Treatment Not on file documented as of this encounter Visit Diagnoses Not on filedocumented in this encounter Additional Health Concerns Assessment Noted Time PHQ-9 Depression Total Score: 2 05/02/20 25 12:36 PM EDT A Body Mass Index follow-up plan has been documented for the patient 05/02/2025 2:04 PM EDT documented as of this encounter Care Teams Quantitative Associate Relationship Specialty Start Date End Date Yeni Mustafa APRN [address] [place] [phone] PCP - General Family Medicine 03/12/24 documented as of this encounter
--- OUTSIDE RECORDS SUMMARY | 2025-05-15 15:16 | XMS_ITS | Clinical Summary ---
Author Organization [facility] Address [address] [place] [address] Care Team Providers Care Foster Care Worker Name Role Phone Yeni Mustafa APRN Primary Care Provider [phone] Allergies Active Allergy Reactions Criticality Noted Date Comments Doxycycline Rash Low 10/15/2024 Oxycodone-Acetaminophen Vomiting 10/15/2024 Tramadol Dizziness Low 10/15/2024 Medications cholecalciferol (Vitamin D-3) 50 MCG (1999 UT) capsule Take 1 capsule (2,000 Units) by mouth daily. Active omeprazole (PriLOSEC) [address] capsuleIndicati ons:Gastroesoph ageal reflux disease with esophagitis without hemorrhage Take 1 capsule by mouth in the morning and 1 capsule before bedtime. Do not crush or chew. 180 capsule 3 5 Active cyclobenzaprine (Flexeril) 10 MG tabletIndicatio ns:Restless leg Take 1 tablet by mouth 2 (two) times a day as needed for muscle spasms. 60 tablet 11 5 Active sertraline (Zoloft) 25 MG tabletIndicatio ns:Generalized anxiety disorder Take 1 tablet by mouth daily. 90 tablet 3 5 Active promethazine (Phenergan) 25 MG tabletIndicatio ns:Nausea Take 1 tablet by mouth every 6 hours as needed for nausea or vomiting. 30 tablet 3 5 Active promethazine (Phenergan) 25 MG tablet Take 1 tablet (25 mg) by mouth every 6 hours as needed for nausea or vomiting. 10 025 Discontinued SEMAGLUTIDE,0.2 5 OR 0.5MG/DOS, SC Inject under the skin. 025 Discontinued Active Problems Problem Noted Date Diagnosed Date Chronic fatigue syndrome with fibromyalgia 03/08 Depression 03/08/2024 Migraines 03/08/2024 Gastroesophageal reflux dise ase with esophagitis without hemorrhage 03/08/2024 Encounters Date Type Department Care Team Description 05/05/2025 Orders Only [facility] [address] [place] [address] Yeni Mustafa, SHOOTING GALLERY OPERATOR Nausea (Primary Dx) 05/05/2025 Results Follow-Up [facility] [address] [place] [address] Yeni Mustafa APRN 05/02/2025 12:40 PM EDT Office Visit [facility] [address] [place] [address] Yeni Mustafa, SHOOTING GALLERY OPERATOR Hair thinning (Primary Dx); Chronic fatigue syndrome with fibromyalgia; Encounter for screening mammogram for malignant neoplasm of breast 05/02/2025 Travel 04/30/2025 Travel from Last 3 Months Immunizations Immunization Administration Dates Next Due Tdap 10/15/2024 Family History Medical History Relation Name Comments Cancer Father Maico Corral Cardiac Devices Pacemaker Present Father Maico bar Colon cancer Father Maico Corral Hearing loss Father Maico Corral Heart disease Father Maico Corral Stroke Father Maico Corral Arthritis Mother Bethany Corral Dementia Mother Bethany Corral Obesity Mother Bethany Corral Black Lung Paternal Grandfather Heart attack Paternal Grandmother Arthritis Sister Milli Laycarmita Relation Name Status Comments Father Maico Corral Mother Bethany Corral Paternal Grandfather Paternal Grandmother Sister Milli Laycarmita Social History Tobacco Use Types Packs/Day Years [...] any time in the past 12 m [facility], were you homeless or living in a fci (including now)? No 05/02/2025 [facility] Utilities Answer Date Recorded In the past 12 months has th e [employer], gas, oil, or water company threatened to shut off services in your home? No 05/02/2025 Comments Unknown Sex and Gender Information Value Date Recorded Sex Assigned at Not on file Legal Sex Female 11:41 AM EDT Gender Identity Not on file Sexual Orientation Not on file Last Filed Vital Signs Vital Sign Reading [...] Mass Index 34.05 05/02/2025 12:33 PM EDT Plan of Treatment Health Maintenance Due Date Last Done Comments [facility]-HIV Screening 1966 [facility]-Hepatitis C Screening 1966 [facility]-/Child/Adol SDOH Screenings 1966 [facility]-Hepatitis B Vaccines (1 of 3 - 19+ 3-dose series) 1985 CT Colonography 2011 Colonoscopy 2011 FIT-DNA 2011 FIT 2011 FOBT 2011 Sigmoidoscopy 2011 [facility]-Colorectal Cancer Screening 2011 [facility]-Breast Cancer Screening 2016 [facility]-Pneumococcal Vaccine: 50+ Years (1 of 1 - PCV) 2016 [facility]-Zoster Vaccines (1 of 2) 2016 [id number] Vaccine (2 - season) 2025 12/04/2020 [facility]-Influenza Vaccine (#1) 2025 [facility]- SDOH Screenings 10/30/2025 [facility]-Adult SDOH Screenings 10/30/2025 05/02/2025 [facility]-Depression Screening 05/02/2026 05/02/2025, 12/2024 [facility]-DTaP,Tdap,and Td Vaccines (2 - Td or Tdap) 10/15/2034 10/15/2024 [facility]-Obesity Intervention Completed 025, 11/19/2024, 10/15/2024, Additional history exists HPV Vaccines Aged Out No longer eligi ble based on patient's age to complete this topic [facility]-HIB Vaccines Aged Out No longer e ligible based on patient's age to complete this topic [facility]-Hepatitis A Vaccines Aged Out No longer eligible based on patient's age to complete this topic [facility]-IPV Vaccines Aged Out No longer e ligible based on patient's age to complete this topic [facility]-Rotavirus Vaccines Aged Out No lo nger eligible based on patient's age to complete this topic Procedures Procedure Name Priority Date/Time Associated Diagnosis Comments TSH Routine 05/02/2025 1:13 PM EDT Hair thinning Chronic fatigue syndrome with fibromyalgia VITAMIN B12, SERUM Routine 05/02/2025 1: 13 PM EDT Hair thinning Chronic fatigue syndrome with fibromyalgia VITAMIN D 25 HYDROXY Routine 05/02/2025 1:13 PM EDT Hair thinning Chronic fatigue syndrome with fibromyalgia HEMOGLOBIN A1C Routine 05/02/2025 1:13 PM EDT Hair thinning Chronic fatigue syndrome with fibromyalgia CBC WITH AUTO DIFFERENTIAL Routine 05/02/2025 1:13 PM EDT Hair thinning Chronic fatigue syndrome with fibromyalgia COMPREHENSIVE METABOLIC PANEL, PLASMA Routine 05/02/2025 1:13 PM EDT Hair thinning Chronic fatigue syndrome with fibromyalgia from Last 3 Months Results * (ABNORMAL) Vitamin D 25 Hydroxy (05/02/2025 1:13 PM EDT) Vitamin D 25 Hydroxy 126.4(H) 20.0 - 80.0 ng/mL 05/02/2025 9:45 PM EDT [facility] Blood Venous blood specimen / Unknown Venipuncture / Unknown 05/02/2025 1:13 PM EDT 05/02/2025 1:13 PM EDT Narrative [facility] - 05/02/2025 9:45 PM EDT Testing performed on Curtis Hopper Filler, standardized against NIST SRM [id number]. When testing [...] 80 ng/mL Possible toxicity: >100 ng/mL us Yeni Mustafa SHOOTING GALLERY OPERATOR LAB BLOOD ORDERABLES Final Re sult [facility] [address] [place] [address] * CBC and Differential (05/02/2025 1:13 PM EDT) WBC Count 7.56 3.70 - 10.30 10*3/uL LAB HEMATOLOGY METHOD 05/02/2025 7:12 PM EDT [facility] RBC Count 4.33 3.90 - 5.20 10*6/uL LAB HEMATOLOGY METHOD 05/02/2025 7:12 PM EDT [facility] HGB 11.5 11.2 - 15.7 g/dL LAB HEMATOLOGY METHOD 05/02/2025 7:12 PM EDT [facility] HCT 35.8 34.0 - 45.0 % LAB HEMATOLOGY METHOD 05/02/2025 7:12 PM EDT [facility] Platelet Count 346 155 - 369 10*3/uL LAB HEMATOLOGY METHOD 05/02/2025 7:12 PM EDT [facility] MCV 83 79 - 98 fL LAB HEMATOLOGY METHOD 05/02/2025 7:12 PM EDT [facility] MCH 26.6 26.0 - 32.0 pg LAB HEMATOLOGY METHOD 05/02/2025 7:12 PM EDT [facility] MCHC 32.1 30.7 - 35.5 g/dL LAB HEMATOLOGY METHOD 05/02/2025 7:12 PM EDT [facility] RDW 14.5 11.5 - 14.5 % LAB HEMATOLOGY METHOD 05/02/2025 7:12 PM EDT [facility] MPV 10.3 8.8 - 12.5 fL LAB HEMATOLOGY METHOD 05/02/2025 7:12 PM EDT [facility] nRBC 0.0 <=0.0 per 100 WBCs LAB HEMATOLOGY METHOD 05/02/2025 7:12 PM EDT [facility] Differential Type Automated LAB HEMATOLOGY METHOD 05/02/2025 7:12 PM EDT [facility] Neutrophils % 48 % LAB HEMATOLOGY METHOD 05/02/2025 7:12 PM EDT [facility] Lymphocytes % 41 % LAB HEMATOLOGY METHOD 05/02/2025 7:12 PM EDT [facility] Monocytes % 8 % LAB HEMATOLOGY METHOD 05/02/2025 7:12 PM EDT [facility] Eosinophils % 2 % LAB HEMATOLOGY METHOD 05/02/2025 7:12 PM EDT [facility] Basophils % 1 % LAB HEMATOLOGY METHOD 05/02/2025 7:12 PM EDT [facility] Immature Granulocytes % 0 % LAB HEMATOLOGY METHOD 05/02/2025 7:12 PM EDT [facility] Neutrophils Absolute 3.70 1.60 - 6.10 10*3/uL LAB HEMATOLOGY METHOD 05/02/2025 7:12 PM EDT [facility] Lymphocytes Absolute 3.07 1.20 - 3.90 10*3/uL LAB HEMATOLOGY METHOD 05/02/2025 7:12 PM EDT [facility] Monocytes Absolute 0.58 0.30 - 0.90 10*3/uL LAB HEMATOLOGY METHOD 05/02/2025 7:12 PM EDT [facility] Eosinophils Absolute 0.12 0.00 - 0.50 10*3/uL LAB HEMATOLOGY METHOD 05/02/2025 7:12 PM EDT [facility] Basophils Absolute 0.06 0.00 - 0.10 10*3/uL LAB HEMATOLOGY METHOD 05/02/2025 7:12 PM EDT [facility] Immature Granulocytes Absolute 0.03 0.00 - 0.06 10*3/uL LAB HEMATOLOGY METHOD 05/02/2025 7:12 PM EDT [facility] Blood Venous blood specimen / Unknown Venipuncture / Unknown 05/02/2025 1:13 PM EDT 05/02/2025 1:13 PM EDT [facility] - 05/02/2025 7:12 PM EDT Therapeutic decision making should be based on absolute values, rather than percentages. us Yeni Eatonum SHOOTING GALLERY OPERATOR LAB BLOOD ORDERABLES Final Re sult Performing Organization Address City/[facility]/ZIP Co de Phone Number [facility] [address] [place] [address] * Thyroid Stimulating Hormone, Plasma (05/02/2025 1:13 PM EDT) Thyroid Stimulating Hormone, Plasma 2.31 0.40 - 4.20 uIU/mL 05/02/2025 7:28 PM EDT [facility] Blood Venous blood specimen / Unknown Venipuncture / Unknown 05/02/2025 1:13 PM EDT 05/02/2025 1:13 PM EDT us Yeni Mustafa SHOOTING GALLERY OPERATOR LAB BLOOD ORDERABLES Final Re sult Performing Organization Address [facility]/ZIP Co de Phone Number [facility] [address] [place] [address] * Hemoglobin A1c (05/02/2025 1:13 PM EDT) Pathologist [facility] Hemoglobin A1c 5.5 <5.7 % 05/05/2025 10:33 AM EDT [facility] Comment:A hemoglobin variant was detected in [...] PM EDT 05/02/2025 1:13 PM EDT Narrative [facility] - 05/05/2025 10:33 AM EDT HA1C Interpretive Data: Diagnosis of Diabetes: Diabetic > or = 6.5% Pre-diabetic 5.7 to 6.4% Non-diabetic < or = 5.6% Glycemic Targets for Type I and Type II Diabetics: Non- Adults <7.0% Adults <6.0% Children and Adolescents <7.5% Source: [employer]. Standards of medical care in diabetes,2017. Diabetes Care.2017:40 (suppl 1):S1-S135. us Yeni Watts Moon SHOOTING GALLERY OPERATOR LAB BLOOD ORDERABLES Final Re sult Performing Organization Address City/[facility]/ZIP Co de Phone Number [facility] [address] [place] [address] * Vitamin B12, Serum (05/02/2025 1:13 PM EDT) Vitamin B12, Serum 486 210 - 1,033 pg/mL 05/02/2025 7:54 PM EDT [facility] Blood Venous blood specimen / Unknown Venipuncture / Unknown 05/02/2025 1:13 PM EDT 05/02/2025 1:13 PM EDT us Yeni Mustafa SHOOTING GALLERY OPERATOR LAB BLOOD ORDERABLES Final Re sult Performing Organization Address [facility] Co de Phone Number [facility] [address] [place] [address] * Comprehensive Metabolic Panel, Plasma (05/02/2025 1:13 PM EDT) Glucose, Plasma 89 74 - 99 mg/dL 05/02/2025 7:28 PM EDT [facility] BUN, Plasma 17 7 - 21 mg/dL 05/02/2025 7:28 PM EDT [facility] Creatinine, Plasma 0.66 0.60 - 1.10 mg/dL 05/02/2025 7:28 PM EDT [facility] BUN/Creatinine Ratio 26 05/02/2025 7:28 PM EDT [facility] Sodium, Plasma 141 136 - 145 mmol/L 05/02/2025 7:28 PM EDT [facility] Potassium, Plasma 4.1 3.6 - 4.9 mmol/L 05/02/2025 7:28 PM EDT [facility] Chloride, Plasma 104 97 - 107 mmol/L 05/02/2025 7:28 PM EDT [facility] CO2, Plasma 24 22 - 29 mmol/L 05/02/2025 7:28 PM EDT [facility] Anion Gap 13 6 - 16 mmol/L 05/02/2025 7:28 PM EDT [facility] Total Calcium, Plasma 9.8 8.9 - 10.2 mg/dL 05/02/2025 7:28 PM EDT [facility] Total Protein 7.2 6.3 - 7.9 g/dL 05/02/2025 7:28 PM EDT [facility] Albumin, Plasma 4.4 3.5 - 5.2 g/dL 05/02/2025 7:28 PM EDT [facility] AST, Plasma 19 10 - 35 U/L 05/02/2025 7:28 PM EDT [facility] ALT, Plasma 21 10 - 35 U/L 05/02/2025 7:28 PM EDT [facility] Alkaline Phosphatase, Plasma 74 46 - 142 U/L 05/02/2025 7:28 PM EDT [facility] Total Bilirubin, Plasma 0.3 0.2 - 1.1 mg/dL 05/02/2025 7:28 PM EDT [facility] eGFRcr 101.8 mL/min/1.7 3m*2 05/02/2025 7:28 PM EDT [facility] Comment:Reported eGFRcr in m L/min/1.73m2 is based the CKD-EPI 2020 equation that does not use a race coefficient. Blood Venous blood specimen / Unknown Venipuncture / Unknown 05/02/2025 1:13 PM EDT 05/02/2025 1:13 PM EDT us Yeni Mustafa SHOOTING GALLERY OPERATOR LAB BLOOD ORDERABLES Final Re sult [facility] [address] [place] [address] from Last 3 Months Insurance [employer] MD Son [id number] Care Teams Foster Care Worker Relationship Specialty Start Date End Date Yeni Mustafa APRN [address] [place] [id number] PCP - General Family Medicine 03/12/24
--- OUTSIDE RECORDS SUMMARY | 2025-05-15 15:16 | XMS_ITS | Encounter Summary ---
Author Organization [facility] Address [address] [place] [place] [address] Care Team Providers Care Physician Assistant Primary Care Name Role Phone Yeni Mustafa APRN Primary Care Provider [phone] Encounter Details Date Type Department Care Team (Late st Contact Info) Description 05/05/2025 Results Follow-Up [facility] [address] [place] [address] Yeni Mustafa APRN [address] [place] [address] Social History Tobacco Use Types Packs/Day Years [...] money to buy more. Never true 05/02/20 Within the past 12 months, t he [...] any time in the past 12 m [facility], were you homeless or living in a fpc (including now)? No 05/02/2025 [facility] Utilities Answer Date Recorded In the [...] Time PHQ-9 Depression Total Score: 2 05/02/20 12:36 PM EDT A Body Mass Index follow-up plan has been documented for the patient 05/02/2025 2:04 PM EDT documented as of this encounter Care Teams Physician Assistant Primary Care Relationship Specialty Start Date End Date Yeni Mustafa APRN [address] [place] [address] PCP - General Family Medicine 03/12/24 documented as of this encounter
--- OUTSIDE RECORDS SUMMARY | 2025-05-15 15:16 | XMS_ITS | Clinical Summary ---
Author Organization [facility] Address [address] [place] [address] Phone Care Team Providers Care Golf Ball Winder Name Role Phone Hilda Crump MD Primary Care Provider [phone] Social History Tobacco Use Types Packs/Day Years Used Date Smoking Tobacco: Never Assessed Comments Unknown Sex and Gender Information Value Date Recorded Sex Assigned at Not on file Legal Sex Female 5:05 AM EDT Gender Identity Not on file Sexual Orientation Not on file Plan of Treatment Health Maintenance Due Date Last Done Comments Annual Wellness Exam 1969 DTaP/TDaP/Td (1 - Tdap) 1985 Hepatitis B Vaccine (1 of 3 - 19+ 3-dose series) 1985 Cervical Cancer Screening 1987 Pap Smear 1987 HPV/Pap Cotest 1996 Breast Cancer Screening 2006 Cologuard 2011 Colon Cancer Screening 2011 Colonoscopy 2011 FIT 2011 Sigmoidoscopy 2011 Virtual Colonography 2011 Pneumococcal Vaccine 50+ (1 of 1 - PCV) 2016 Zoster (1 of 2) 2016 COVID-19 Vaccine (1 - 2023-2 5 season) 2025 Influenza Vaccine (#1) 2025 Meningococcal B Vaccine Aged Out No l onger eligible based on patient's age to complete this topic Insurance [facility] Care Teams Golf Ball Winder Relationship Specialty Start Date End Date Hilda Crump MD [address] [place] [address] PCP - General Family Medicine 09/28/12
--- OUTSIDE RECORDS SUMMARY | 2025-05-15 15:16 | XMS_ITS | Clinical Summary ---
Author Organization [facility] Address [address] [place] [address] Care Team Providers Care Structures Mechanic Name Role Phone Historical, Centricity Unavailable Unavailab Hilda Cassidy MD Primary Care Provider [phone] Source Comments This information has been disclosed to you from confidential records protectedfrom disclosure by state law. You shall make no further disclosure of thisinformation without the specific, written, and informed release of theindividual to whom it pertains, or as otherwise permitted by law. A generalauthorization for the release of medical or other information is not sufficientfor the purposes of therelease of HIV test results or diagnoses. [id number] Allergies Active Allergy Reactions Criticality Noted Date Comments Oxycodone-Acetaminophen Nausea And Vomiting Tramadol Other (See Comments) 05/20/2013 Dizziness Medications acetaminophen-c odeine (TYLENOL #3) 300-30 mg per tablet 05/11/2013 Active buPROPion SR (WELLBUTRIN SR) 150 MG tablet 05/18/2013 Activ e clonazePAM (KLONOPIN) 0.5 MG tablet 05/10/2013 Active citalopram (CELEXA) 40 MG tablet Take 40 mg by mouth daily. Active vit D3-folic [id number]-Y6-F0-B12 2,000-800-0.32 unit-mcg-mg Tab Take by mouth. Active cetirizine (ZYRTEC) 10 MG tablet Take 10 mg by mouth daily. Active predniSONE (DELTASONE) 5 MG tablet Take 1 tablet (5 mg total) by mouth 2 times a day. 60 tablet 1 05/20/2013 Active cyclobenzaprine (FLEXERIL) 5 MG tablet Take 1 tablet (5 mg total) by mouth 3 times a day as needed for Muscle spasms. 90 tablet 1 06/03/2013 Active amoxicillin-cla vulanate (AUGMENTIN) 875-125 mg per tablet 07/08/2013 Active gabapentin (NEURONTIN) 300 MG capsule Take 2 capsules (600 mg total) by mouth 2 times a day. 120 capsule 3 10/07/2013 Active Family History Medical History Relation Comments Diabetes Cousin Asthma Maternal Grandfather Stroke Maternal Grandmother Cancer Maternal Uncle Hypertension Mother Cancer Paternal Aunt Diabetes Paternal Grandmother Diabetes Paternal Uncle Relation Status Comments Cousin Father Alive Maternal Grandfather Maternal Grandmother Maternal Uncle Mother Alive Paternal Aunt Paternal Grandmother Paternal Uncle Social History Tobacco Use Types Packs/Day Years Used Date Smoking Tobacco: Never Alcohol Use Standard Drinks/Week Comments No 0 (1 standard drink = 0.6 oz pur e alcohol) Comments Unknown Sex and Gender Information Value Date Recorded Sex Assigned at Not on file Legal Sex Female 6:03 PM EST Gender Identity Not on file Sexual Orientation Not on file Last Filed Vital Signs Vital Sign Reading Time Taken Comments Blood Pressure 110/75 08/05/2013 11:47 AM EST Pulse 88 08/05/2013 11:47 AM EST Temperature 36.7 C (98 F) 08/05/2013 11:47 AM EST Respiratory Rate 14 08/05/2013 11:47 AM EST Oxygen Saturation 98% 08/05/2013 11:47 AM EST Inhaled Oxygen Concentration 98% 08/05/2013 1 1:47 AM EST Weight 95.3 kg (210 lb) 08/05/2013 11:47 AM EST Height 167.6 cm (5' 6 ) 08/05/2013 11:47 AM EST Body Mass Index 33.89 08/05/2013 11:47 AM EST Plan of Treatment Not on file Insurance [employer] Member Subscriber Plan / Payer (Ef fective 2012-Present) Name:Carolann Beatty Relation to Subscriber:Spouse Name:WILMA BEATTY Date of :1968 (Home) Address: [address] [place] [address] Payer ID:[id number] (NAIC) Type:O Address: [facility] [id number] [place] [id number] Care Teams Structures Mechanic Relationship Specialty Start Date End Date Historical, Centricity PCP - Cardiology 05/10/13 Hilda Crump MD [address] [place] [id number] PCP - General Family Medicine 05/20/13
--- OUTSIDE RECORDS SUMMARY | 2025-05-15 15:16 | XMS_ITS | Encounter Summary ---
Author Organization [facility] Address [address] [place] [address] Care Team Providers Care Cottrell Blower Name Role Phone Yeni Mustafa HVAC R TECH Primary Care Provider Encounter Details Date Type Department Care Team (Late st Contact Info) Description 05/05/2025 Orders Only [facility] [address] [place] [address] Yeni Mustafa, HVAC R TECH [address] [place] [address] Nausea (Primary Dx) Social History Tobacco Use Types Packs/Day Years [...] time in the past 12 m [facility], were you homeless or living in a penitentiary (including now)? No 05/02/2025 [facility] Utilities Answer Date Recorded In the past [...] as of this encounter Visit Diagnoses Diagnosis Nausea- Primary Nausea alone documented in this encounter Additional Health Concerns Assessment Noted Time PHQ-9 Depression Total Score: 2 05/02/20 12:36 PM EDT A Body Mass Index follow-up plan has been documented for the patient 05/02/2025 2:04 PM EDT documented as of this encounter Care Teams Cottrell Blower Relationship Specialty Start Date End Date [place] [address] PCP - General Family Medicine 03/12/24 documented as of this encounter
--- NOTE | 2025-05-15 15:17 | MM_ITS ---
PROCEDURE INFORMATION: Exam: Bilateral Screening 3D Mammography Exam date and time: 05/15/2025 3:31 PM Age: 59 years old Clinical indication: Screening examination TECHNIQUE: Imaging protocol: Bilateral Screening tomosynthesis and 2D mammography including computer-aided detection (CAD) when performed. COMPARISON: 1. SCN DIG BREAST TOMOSYN SANDOVAL 12/06/2023 9:16 AM 2. DIG MAMMO BILAT SCREENING 03/18/2019 8:08 AM FINDINGS: MAMMOGRAPHY: Breast composition: There are scattered areas of fibroglandular density. Mass: None. Architectural distortion: None. Calcifications: No suspicious calcifications. Asymmetric density: None. Skin thickening: None. Axillary adenopathy: None. IMPRESSION: No mammographic evidence of malignancy. Annual screening is recommended unless otherwise clinically indicated. ASSESSMENT: BI-RADS Category 1: Negative.
== END 2025-05-15 23:59 | disposition home or self-care (01) ==
LOC: RAD 15:15
PROVIDERS: PCP Nurse Practitioner Family; Visit Provider Nurse Practitioner Family
DX: Z12.31 Encounter for screening mammogram for malignant neoplasm of breast (principal); R92.323 Mammographic fibroglandular density, bilateral breasts
CPT/HCPCS: 77063; 77067